=== PATIENT | female | born 1995 | race Caucasian/White ===

== ENCOUNTER 2022-10-23 13:08 | Emergency (ER) | payer SELFPAY ==
[~2022-10-23] VITALS: Ht 162.6 cm; Wt 54.4 kg
[2022-10-23 13:30] VITALS: BP 129/80
--- NOTE | 2022-10-23 16:27 | NUR ---
ATTEMPTED TO BRING PT BACK, NOT FOUND IN LOBBY/OUTSIDE.
--- NOTE | 2022-10-23 16:32 | NUR ---
2ND ATTEMPT, NOT FOUND IN LOBBY/OUTSIDE
--- NOTE | 2022-10-23 17:03 | NUR ---
FINAL ATTEMPT, NOT FOUND IN LOBBY/OUTSIDE. PATIENT LEFT WITHOUT BEING SEEN BY DR. FOREMAN. NO FURTHER CARE PROVIDED FOR PATIENT.
== END 2022-10-23 17:15 | disposition left against medical advice (07) ==
LOC: MED 13:08
DX: N64.4 Mastodynia (principal); R03.0 Elevated blood-pressure reading, without diagnosis of hypertension
CPT/HCPCS: 99281